=== PATIENT | female | born 1960 | race Caucasian/White ===

== ENCOUNTER 2019-11-02 14:33 | Emergency (ER) | payer OTHER ==
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
[2019-11-02 16:34] VITALS: RESP 16
--- NOTE | 2019-11-02 16:36 | XR ---
EXAMINATION TYPE: XR shoulder complete RT DATE OF EXAM: 11/02/2019 COMPARISON: NONE HISTORY: 59-year-old female right shoulder pain TECHNIQUE: 3 views FINDINGS: Suggestive of an old healed fracture deformity of the distal third clavicular shaft. Mild degenerativ e spurring and capsular hypertrophy at the acromioclavicular joint. There is a focal round lucency along the expected bicipital groove, probable prior postsurgical styles e. This needs to be confirmed clinically to exclude some underlying lytic lesion. No acute fracture, subluxation, dislocation. IMPRESSION: 1. Old healed fracture deformity distal third clavicular shaft. 2. Mild AC joint OA. 3. Round lucent area within the at the surgical neck level along the expected bicipital groove. Suspe ct postsurgical change. This should be confirmed clinically to exclude the possibility of a lytic les ion. 4. No acute osseous abnormality seen.
[2019-11-02] MEDS ORDERED: HYDROcodone/APAP 5-325MG 1 EACH TAB PO STA (17:01)
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
[2019-11-02 17:34] VITALS: BP 116/67; PULSE 71; TEMP 97.5
== END 2019-11-02 17:32 | disposition home or self-care (01) ==
LOC: EC 14:33
DX: S43.401A Unspecified sprain of right shoulder joint, initial encounter (principal); M54.2 Cervicalgia; Z88.0 Allergy status to penicillin; Z98.1 Arthrodesis status; V47.0XXA Car driver injured in collision with fixed or stationary object in nontraffic accident, initial encounter; Y93.89 Activity, other specified; Y92.481 Parking lot as the place of occurrence of the external cause
CPT/HCPCS: 73030; 72125; 70450; 99285; L0120

== ENCOUNTER → 2020-01-25 | Outpatient (CLI) | payer MEDICARE ==
--- NOTE | 2020-01-29 09:56 | MM ---
Reason for exam: clinical finding. History: Patient is postmenopausal. Family history of breast cancer in sister at age 48. Took estrogen for 6 months beginning at age 49. Took progesterone for 6 months beginning at age 49. Physical Findings: Nurse Summary: 0.25cm nodule in the right breast at 11 o'clock (nurse mary). MG 3D Diag Mammo W/Cad NIKHIL Bilateral CC and MLO view(s) were taken. There are scattered fibroglandular densities. There is no discrete abnormality. These results were verbally communicated with the patient and result sheet given to the patient on 01/25/20. ASSESSMENT: Incomplete: need additional imaging evaluation, BI-RAD 0 RECOMMENDATION: Ultrasound of the right breast. Manage on a clinical basis with regard to palpable.
--- NOTE | 2020-01-29 09:57 | USB ---
Reason for exam: additional evaluation requested from abnormal screening. History: Patient is postmenopausal. Family history of breast cancer in sister at age 48. Took estrogen for 6 months beginning at age 49. Took progesterone for 6 months beginning at age 49. US Breast RT Right complete breast ultrasound includes all four quadrants, the retroareolar region and axilla. Finding demonstrates a 0.5 x 0.4cm calcification at 12 o'clock. These results were verbally communicated with the patient and result sheet given to the patient on 01/25/20. ASSESSMENT: Benign, BI-RAD 2 RECOMMENDATION: Routine screening mammogram of both breasts in 1 year.
== END | disposition home or self-care (01) ==
LOC: RADMAMWWP 15:05
PROVIDERS: ATTEND Family Medicine
DX: R92.8 Other abnormal and inconclusive findings on diagnostic imaging of breast (principal); N63.10 Unspecified lump in the right breast, unspecified quadrant; Z80.3 Family history of malignant neoplasm of breast
CPT/HCPCS: 77066; 76641; G0279; 77062

== ENCOUNTER 2020-11-18 13:13 | Emergency (ER) | payer MEDICARE ==
[2020-11-18 13:25] VITALS: BP 131/80; PULSE 96; RESP 18; TEMP 98.3
--- NOTE | 2020-11-18 14:34 | ED ---
General Adult HPI - General Chief complaint: Wound/Laceration Stated complaint: fall, rt henriquez injury/infection Time Seen by Provider: 11/18/20 14:23 Source: patient, RN notes reviewed Mode of arrival: wheelchair Limitations: no limitations - History of Present Illness Initial comments: 60-year-old female presents emergency from chief complaint right leg swelling. Patient states she had a small bump there which was increasing over the last week. Patient states that she poked a needle there is some puslike drainage. No fevers or chills no history of skin infections no other complaints. - Related Data Previous Rx's Medication Instructions Recorded Sulfamethox-Tmp 800-160Mg [Bactrim 1 each PO Q12HR #20 tab 11/18/20 Ds] Allergies Allergy/AdvReac Type Severity Reaction Status Date / Time Penicillins Allergy Anaphylaxis Verified 11/18/20 13:23 Review of Systems ROS Statement: Those systems with pertinent positive or pertinent negative responses have been documented in the HPI. ROS Other: All systems not noted in ROS Statement are negative. Past Medical History Past Medical History: Diabetes Mellitus Additional Past Medical History / Comment(s): Graves Disease, Chronic Fatigue History of Any Multi-Drug Resistant Organisms: None Reported Past Surgical History: Section, Hernia Repair, Hysterectomy Additional Past Surgical History / Comment(s): C3-C7 fusion, right shoulder rotator and bicep repair, right carpal tunnel surgery Past Psychological History: Anxiety, PTSD Smoking Status: Never smoker Past Alcohol Use History: Rare Past Drug Use History: None Reported General Exam Limitations: no limitations General appearance: alert, in no apparent distress Neck exam: Present: normal inspection. Absent: tenderness, meningismus, lymphadenopathy Respiratory exam: Present: normal lung sounds bilaterally. Absent: respiratory distress, wheezes, rales, rhonchi, stridor Cardiovascular Exam: Present: regular rate, normal rhythm, normal heart sounds. Absent: systolic murmur, diastolic murmur, rubs, gallop, clicks Extremities exam: Present: other (Right lower leg there is noted flexion area mild erythema.) Course Vital Signs 11/18/20 13:23 Temperature 98.3 F Pulse Rate 96 Respiratory 18 Rate Blood Pressure 131/80 O2 Sat by Pulse 96 Oximetry Medical Decision Making - Medical Decision Making Patient has a small right lower leg abscess started Keflex return parameters were discussed. Disposition Clinical Impression: Abscess of leg, right Disposition: HOME SELF-CARE Condition: Stable Instructions (If sedation given, give patient instructions): Abscess (ED) Additional Instructions: Please return to the Emergency Department if symptoms worsen or any other concerns. Prescriptions: Sulfamethox-Tmp 800-160Mg [Bactrim Ds] 1 each PO Q12HR #20 tab Is patient prescribed a controlled substance at d/c from ED?: No Referrals: Maria Esther Zavala MD [Primary Care Provider] - 1-2 days Time of Disposition: 14:34
== END 2020-11-18 14:54 | disposition home or self-care (01) ==
LOC: EC 13:13
DX: L02.415 Cutaneous abscess of right lower limb (principal); E11.9 Type 2 diabetes mellitus without complications; Z88.0 Allergy status to penicillin
CPT/HCPCS: 99283

== ENCOUNTER → 2020-11-19 | Outpatient (CLI) | payer MEDICARE ==
--- NOTE | 2020-11-19 16:21 | US ---
EXAMINATION TYPE: US venous doppler duplex LE RT DATE OF EXAM: 11/19/2020 3:57 PM COMPARISON: NONE CLINICAL HISTORY: R22.1 swelling R low leg,S89.91XD Injury R low leg. Pt states lump right lower/late ral leg s/p injury SIDE PERFORMED: Right TECHNIQUE: The lower extremity deep venous system is examined utilizing real time linear array sonog bakari with graded compression, doppler sonography and color-flow sonography. VESSELS IMAGED: Common Femoral Vein Deep Femoral Vein Greater Saphenous Vein * Femoral Vein Popliteal Vein Small Saphenous Vein * Proximal Calf Veins (* superficial vessels) Right Leg: Negative for DVT Results called to Dr. Mayo at time of exam Grayscale, color doppler, spectral doppler imaging performed of the deep veins of the right lower ext remity. There is normal flow, compressibility, vascular waveforms. IMPRESSION: No ultrasound evidence for acute DVT in the right lower extremity.
--- NOTE | 2020-11-20 07:26 | US ---
EXAMINATION TYPE: US extremity nonvasc mass RT DATE OF EXAM: 11/19/2020 COMPARISON: NONE CLINICAL HISTORY: R22.41 LUMP OF SKIN RIGHT LOWER EXTREMITY. Pt states palpable lump right lower/late ral leg s/p injury Simple fluid collection in area of pt's palpable= 2.4 x 0.6 x 2.2 cm with soft tissue edema Results called to Dr. Mayo at time of exam IMPRESSION: 1. Anechoic collection at the level of the palpable abnormality in the left lower extremity. Consider seroma. Follow-up can be performed as clinically indicated.
== END | disposition home or self-care (01) ==
LOC: RADUSWWP 15:36
PROVIDERS: ATTEND Family Medicine
DX: S89.91XD Unspecified injury of right lower leg, subsequent encounter (principal); R22.41 Localized swelling, mass and lump, right lower limb